=== PATIENT | female | born 1965 | race Hispanic/Latino ===

== ENCOUNTER 2021-12-29 10:45 | Day surgery (SDC) | payer OTHER ==
[2021-12-29] VITALS (12 sets, daily range): BP systolic 90–135; BP diastolic 60–90
[~2021-12-29] VITALS: Ht 162.6 cm; Wt 69.9 kg
[~2021-12-29 10:45] MED LIST: ATOR10TA69 PO; EMPA10TA PO; IBUP-2077 PO; LORA10TA7 PO; METF-446 PO; SITA25TA5 PO
[2021-12-29] MEDS ORDERED: 0.9%NACL 1000ML 1,000 ML IV ONE (11:40)
[2021-12-29] MEDS ORDERED: FENTANYL CITRATE PF 50 MCG/1 ML 2ML VIAL ONE (12:39)
[2021-12-29] MEDS ORDERED: MIDAZOLAM HCL 1 MG/ML 2ML VIAL ONE (12:40)
[2021-12-29] MEDS ORDERED: PROPOFOL 10 MG/ML 20ML VIAL IV ONE ×2 (12:45→12:46)
[2021-12-29] MEDS ORDERED: LIDOCAINE PF 100MG/5ML (2%) SYRINGE 5ML ONE (12:47)
== END 2021-12-29 14:05 | disposition home or self-care (01) ==
LOC: ENDO 10:45
PROVIDERS: ATTEND Internal Medicine Gastroenterology
DX: Z12.11 Encounter for screening for malignant neoplasm of colon (principal); R10.816 Epigastric abdominal tenderness; K29.60 Other gastritis without bleeding; K64.1 Second degree hemorrhoids; K63.5 Polyp of colon; E78.5 Hyperlipidemia, unspecified; E11.9 Type 2 diabetes mellitus without complications; Z79.01 Long term (current) use of anticoagulants; Z79.899 Other long term (current) drug therapy
CPT/HCPCS: 43239; 45380; 82948; 87635; A4215 ×2; A4221; A4222; A4223; A4606; A4620; A4657; A4663; C9803; J2001; J2250; J2704 ×2; J3010; J7030